=== PATIENT | female | born 1980 | race African-American/Black ===

== ENCOUNTER 2018-07-12 10:39 | Emergency (ER) | payer MEDICAID ==
[~2018-07-12] VITALS: Ht 160 cm; Wt 76.0 kg
[2018-07-12] MEDS ORDERED: ONDANSETRON 4MG ODT PO ONE (12:30)
[2018-07-12] MEDS ORDERED: IBUPROFEN 600MG TABLET PO ONE (12:30)
[2018-07-12 13:52] VITALS: BP 120/87
== END 2018-07-12 13:52 | disposition home or self-care (01) ==
LOC: ER 10:39
DX: B34.9 Viral infection, unspecified (principal); E86.0 Dehydration; Z88.0 Allergy status to penicillin
CPT/HCPCS: 87070; 87430; 87804; 99283; Q0162

== ENCOUNTER 2019-09-01 16:40 | Inpatient (IN) | payer MEDICAID ==
[~2019-09-01] VITALS: Ht 162.6 cm; Wt 80.7 kg
[2019-09-01] MEDS ORDERED: APIX5TAB PO (17:27)
[2019-09-01 20:33] LABS: BASOPHILS % 1.2 % (0.0-2.0); CHLORIDE 108 mEq/L (98-107); EOSINOPHILS % 1.8 % (0.0-5.0); HEMATOCRIT. 36.7 % (36.0-48.0); HEMOGLOBIN. 12.5 g/dL (12.0-16.0); LYMPHOCYTES % 29.1 % (20.0-50.0); MEAN CORPUSCULAR HEMOGLOBIN 29.1 pg (28.0-32.0); MEAN CORPUSCULAR VOLUME 85.6 fL (81.0-99.0); MEAN PLATELET VOLUME 7.7 fl (7.4-10.4); MONOCYTES % 5.9 % (2.0-8.0); PLATELET 232 x1000/uL (130-400); RED BLOOD CELL COUNT 4.28 mill/uL (4.2-5.4); RED CELL DISTRIBUTION WIDTH 16.1 % (11.6-14.6)
[2019-09-01 23:43] LABS: HCG SCREEN NEGATIVE
[2019-09-02] MEDS ORDERED: MORPHINE SULFATE 4 MG/ML CPJ (NOT FOR IM USE) IV ONE ×2 (00:30→02:30)
[2019-09-02] MEDS ORDERED: IOHEXOL-350 100 ML BOTTLE ONE (05:25)
[2019-09-02] MEDS ORDERED: ONDANSETRON HCL 4MG/2ML INJ IV PRN (07:30)
[2019-09-02] MEDS ORDERED: HEPARIN 5000 UNITS/ML VIAL IV NR (07:30)
[2019-09-02] MEDS ORDERED: CLONIDINE 0.1MG TABLET PO PRN (07:30)
[2019-09-02] MEDS ORDERED: HEPARIN 25,000 UNITS PREMIX 500 ML IV SCH (07:30)
[2019-09-02] MEDS ORDERED: IPRATROPIUM/ALBUTEROL 0.5-3(2.5)MG/3ML NEB HHN PRN (07:30)
[2019-09-02 08:25] LABS: PARTIAL THROMBOPLASTIN TIME 23.8 sec (23.4-31.0); PROTHROMBIN TIME 10.6 sec (9.6-11.0)
[2019-09-02] MEDS ORDERED: HEPARIN BOLUS PRN aPTT 37-44 IV (09:00)
[2019-09-02] MEDS ORDERED: HEPARIN BOLUS PRN aPTT <36 IV (09:00)
[2019-09-02 10:00] VITALS: BP 100/56
[2019-09-02] MEDS ORDERED: BUPR75TA8 PO (11:32)
[2019-09-02] MEDS ORDERED: TOPUD PO (11:32)
[2019-09-02] MEDS ORDERED: VIT1TABL86 MT (11:32)
[2019-09-02] MEDS ORDERED: ABIL10 PO (11:32)
[2019-09-02 12:00] VITALS: BP 98/62
[2019-09-02] MEDS: HEPARIN 25,000 UNITS PREMIX 500 ML IV SCH (14:03)
[2019-09-02 16:00] VITALS: BP 100/72
[2019-09-02] MEDS: NICOTINE 14MG PATCH TD SCH (17:57)
[2019-09-02] MEDS: HYDROCODONE/ACETAMINOPHEN 5/325MG TABLET PO PRN (17:59)
[2019-09-02 18:00] VITALS: BP 163/51
[2019-09-02 20:00] VITALS: BP 99/63
[2019-09-02] MEDS: IPRATROPIUM/ALBUTEROL 0.5-3(2.5)MG/3ML NEB HHN SCH (20:21)
[2019-09-03] VITALS: BP 99/68
[2019-09-03] MEDS: IPRATROPIUM/ALBUTEROL 0.5-3(2.5)MG/3ML NEB HHN SCH ×4 (02:51→21:21)
[2019-09-03 04:00] VITALS: BP 98/57
[2019-09-03] MEDS: HYDROCODONE/ACETAMINOPHEN 5/325MG TABLET PO PRN ×3 (05:53→19:07)
[2019-09-03] MEDS: NICOTINE 14MG PATCH TD SCH (08:50)
[2019-09-03 09:44] LABS: BASOPHILS % 0.8 % (0.0-2.0); EOSINOPHILS % 1.9 % (0.0-5.0); HEMATOCRIT. 33.3 % (36.0-48.0); HEMOGLOBIN. 11.5 g/dL (12.0-16.0); LYMPHOCYTES % 29.1 % (20.0-50.0); MEAN CORPUSCULAR HEMOGLOBIN 29.5 pg (28.0-32.0); MEAN CORPUSCULAR VOLUME 85.4 fL (81.0-99.0); MONOCYTES % 9.1 % (2.0-8.0); NEUTROPHILS % 59.1 % (40.0-76.0); PLATELET 217 x1000/uL (130-400)
[2019-09-03 10:31] LABS: CHLORIDE 105 mEq/L (98-107)
[2019-09-03 10:38] LABS: HDL CHOLESTEROL 81 mg/dL (40-59)
[2019-09-03 10:39] LABS: LDL CHOLESTEROL 105 mg/dL (5-100)
[2019-09-03 11:51] VITALS: BP 103/59
[2019-09-03] MEDS: HEPARIN 25,000 UNITS PREMIX 500 ML IV SCH (13:03)
[2019-09-03 16:00] VITALS: BP 100/55
[2019-09-03 20:00] VITALS: BP 105/69
[2019-09-03] MEDS: ACETAMINOPHEN 325MG TABLET PO PRN (20:43)
[2019-09-03] MEDS: DIPHENHYDRAMINE 50MG/ML VIAL IV PRN (20:44)
[2019-09-04] VITALS: BP 91/60
[2019-09-04] MEDS: IPRATROPIUM/ALBUTEROL 0.5-3(2.5)MG/3ML NEB HHN SCH ×4 (02:01→21:58)
[2019-09-04 04:00] VITALS: BP 101/66
[2019-09-04 07:05] LABS: BASOPHILS % 0.5 % (0.0-2.0); EOSINOPHILS % 2.3 % (0.0-5.0); HEMATOCRIT. 33.4 % (36.0-48.0); HEMOGLOBIN. 11.3 g/dL (12.0-16.0); LYMPHOCYTES % 45.2 % (20.0-50.0); MEAN CORPUSCULAR HEMOGLOBIN 28.8 pg (28.0-32.0); MEAN CORPUSCULAR VOLUME 85.4 fL (81.0-99.0); MEAN PLATELET VOLUME 7.9 fl (7.4-10.4); MONOCYTES % 7.6 % (2.0-8.0); NEUTROPHILS % 44.4 % (40.0-76.0); PLATELET 214 x1000/uL (130-400); RED BLOOD CELL COUNT 3.91 mill/uL (4.2-5.4); RED CELL DISTRIBUTION WIDTH 16.2 % (11.6-14.6)
[2019-09-04 07:40] LABS: CHLORIDE 107 mEq/L (98-107)
[2019-09-04 08:00] VITALS: BP 100/68
[2019-09-04] MEDS: ACETAMINOPHEN 325MG TABLET PO PRN ×2 (09:26→15:39)
[2019-09-04] MEDS: DIPHENHYDRAMINE 50MG/ML VIAL IV PRN ×3 (09:26→23:47)
[2019-09-04] MEDS: NICOTINE 14MG PATCH TD SCH (09:27)
[2019-09-04 12:00] VITALS: BP 108/60
[2019-09-04] MEDS: HEPARIN 25,000 UNITS PREMIX 500 ML IV SCH (12:22)
[2019-09-04 19:30] VITALS: BP 88/59
[2019-09-04 20:00] VITALS: BP 98/59
[2019-09-04] MEDS: HYDROCODONE/ACETAMINOPHEN 5/325MG TABLET PO PRN (20:15)
[2019-09-05] VITALS (7 sets, daily range): BP systolic 90–106; BP diastolic 55–73
[2019-09-05] MEDS: IPRATROPIUM/ALBUTEROL 0.5-3(2.5)MG/3ML NEB HHN SCH ×3 (02:25→12:15)
[2019-09-05] MEDS: NICOTINE 14MG PATCH TD SCH (08:25)
[2019-09-05] MEDS: HYDROCODONE/ACETAMINOPHEN 5/325MG TABLET PO PRN ×2 (08:56→13:15)
[2019-09-05] MEDS ORDERED: ALBU90AE INH ×2 (10:11→17:13)
[2019-09-05] MEDS: DIPHENHYDRAMINE 50MG/ML VIAL IV PRN (10:15)
[2019-09-05] MEDS ORDERED: APIX5TAB PO (16:06)
[2019-09-06] MEDS ORDERED: NICOTINE 7MG PATCH TOP SCH (09:00)
== END 2019-09-05 18:43 | disposition home or self-care (01) | DRG 134 ==
LOC: ER 16:40 → 7WST 09-02 02:35 → EDBEDREQ 09-02 02:50 → EDBEDREQTM 09-02 02:50 → ENRESERV 09-02 08:18
PROVIDERS: ADMIT Internal Medicine; ATTEND Internal Medicine
DX: I26.99 Other pulmonary embolism without acute cor pulmonale (principal); J96.00 Acute respiratory failure, unspecified whether with hypoxia or hypercapnia; D68.59 Other primary thrombophilia; R26.89 Other abnormalities of gait and mobility; E66.9 Obesity, unspecified; F17.210 Nicotine dependence, cigarettes, uncomplicated; Z86.718 Personal history of other venous thrombosis and embolism; Z79.899 Other long term (current) drug therapy; Z88.8 Allergy status to other drugs, medicaments and biological substances; Z71.6 Tobacco abuse counseling; Z68.30 Body mass index [BMI] 30.0-30.9, adult
CPT/HCPCS: 36415; 70551; 71045; 71275; 72141; 72146; 72148; 80048; 80053; 80061; 80320; 83880; 84443; 84484; 84703; 85025; 93005; 93970; 94640; 96374; 97162; 99285; J1200; J1644; J2270; Q9967; G0480

== ENCOUNTER 2019-12-18 16:27 | Emergency (ER) | payer MEDICAID ==
[~2019-12-18] VITALS: Ht 162.6 cm; Wt 72.5 kg
[~2019-12-18 16:27] MED LIST: ABIL10 PO; ALBU90AE INH; APIX5TAB PO; BUPR75TA8 PO; TOPUD PO; VIT1TABL86 MT
[2019-12-18] MEDS ORDERED: KETOROLAC 60MG/2ML VIAL IM ONE (17:30)
[2019-12-18 19:01] VITALS: BP 134/91
== END 2019-12-18 20:03 | disposition home or self-care (01) ==
LOC: ER 16:27
DX: H66.91 Otitis media, unspecified, right ear (principal); M79.604 Pain in right leg; M25.561 Pain in right knee; Z79.899 Other long term (current) drug therapy; Z88.5 Allergy status to narcotic agent
CPT/HCPCS: 93971; 96372; 99284; J1885